=== PATIENT | female | born 1970 | race Caucasian/White ===

== ENCOUNTER 2021-06-18 15:32 | Outpatient (REF) | payer OTHER, SELFPAY ==
[2021-06-18 20:11] LABS: Calculated LDL 113 mg/dL (<100); Cholesterol 200 mg/dL (<200); Glucose 93 mg/dL (74-106); HDL Cholesterol 77 mg/dL (40-60); Triglyceride 53 mg/dL (<150)
== END 2021-06-18 15:33 | disposition home or self-care (01) ==
LOC: NCHCN 15:32
PROVIDERS: Visit Provider Internal Medicine
DX: R03.0 Elevated blood-pressure reading, without diagnosis of hypertension (principal); E03.9 Hypothyroidism, unspecified; Z13.1 Encounter for screening for diabetes mellitus; Z13.220 Encounter for screening for lipoid disorders
CPT/HCPCS: 80061; 82947; 84443

== ENCOUNTER 2021-08-29 16:46 | Outpatient (REF) | payer OTHER, SELFPAY ==
[2021-08-29 21:28] LABS: FREE T4 1.13 ng/dL (0.76-1.46); TSH 0.12 uIU/mL (0.36-3.74)
== END 2021-08-29 16:47 | disposition home or self-care (01) ==
LOC: NCHCN 16:46
PROVIDERS: Visit Provider Internal Medicine
DX: E03.9 Hypothyroidism, unspecified (principal)
CPT/HCPCS: 84439; 84443

== ENCOUNTER 2023-09-17 19:33 | Outpatient (REF) | payer OTHER, SELFPAY ==
[2023-09-17 20:40] LABS: Glucose 91 mg/dL (74-106); TSH 0.82 uIU/mL (0.36-3.74)
== END 2023-09-17 19:34 | disposition home or self-care (01) ==
LOC: NCHCN 19:33
PROVIDERS: Visit Provider Internal Medicine
DX: E03.9 Hypothyroidism, unspecified (principal); Z13.1 Encounter for screening for diabetes mellitus
CPT/HCPCS: 82947; 84443

== ENCOUNTER 2025-08-26 12:12 | Outpatient (REF) | payer OTHER, SELFPAY ==
[2025-08-26 20:14] LABS: Hemoglobin A1C 5.4 % (<5.7)
[2025-08-26 20:17] LABS: TSH (W/Ref FT4) 0.95 uIU/mL (0.55-4.78)
[2025-08-26 20:24] LABS: ALT 18 U/L (10-49); AST 22 U/L (<34); Albumin 4.5 g/dL (3.2-5.0); Alkaline Phosphatase 105 U/L (46-116); Bilirubin, Total 1.0 mg/dL (0.2-1.2); Total Protein 7.1 g/dL (5.7-8.2)
[2025-08-26 23:57] LABS: Bilirubin, Direct 0.3 mg/dL (<=0.3)
== END 2025-08-26 12:13 | disposition home or self-care (01) ==
LOC: NCHCN 12:12
PROVIDERS: PCP Nurse Practitioner; Visit Provider Nurse Practitioner
DX: E03.9 Hypothyroidism, unspecified (principal); B35.1 Tinea unguium
CPT/HCPCS: 80076; 83036; 84439; 84443